=== PATIENT | female | born 1985 | race Caucasian/White ===

== ENCOUNTER 2016-11-23 19:52 | Inpatient (IN) ==
[2016-11-24] MEDS ORDERED: ONDANSETRON 4 MG/2 ML VIAL IV PRN ×2 (00:18→09:06)
[2016-11-24] MEDS: LACTATED RINGERS 1,000 ML IV SCH ×2 (00:25→01:59)
[2016-11-24 00:36] LABS: Basophils % 0.3 % (0.0-0.8); Eosinophils # 0.1 10*3/uL (0.0-0.87); Eosinophils % 0.7 % (0.00-10.9); Hematocrit 33.5 VOL% (35.7-47.0); Hemoglobin 11.2 GM/DL (12.0-16.0); Immature Granulocytes % 0.6 %; Immature Granulocytes Absolute 0.09 #; Lymphocytes # 2.9 10*3/uL (1.4-4.0); Lymphocytes % 19.3 % (21.3-54.2); Mean Corpuscular HGB Conc 33.4 GM/DL (32-36); Mean Corpuscular Hemoglobin 26 PG (27-34); Mean Corpuscular Volume 76.1 FL (87-102); Mean Platelet Volume 9.9 FL (9.6-12.0); Monocytes # 0.8 10*3/uL (0.11-0.8); Monocytes % 5.5 % (1.7-12.7); Neutrophils # 11.2 10*3/uL (1.4-7.4); Neutrophils % 73.6 % (38.7-73.9); Platelet Count 340 T/CUMM (130-400); Red Cell Distribution Width 16.2 % (9.3-17.3); White Blood Count 15.2 T/CUMM (4-12)
[2016-11-24] MEDS ORDERED: MEPERIDINE 50 MG/1 ML VIAL IV PRN (00:39)
[2016-11-24 01:03] LABS: Alanine Aminotransferase 19 U/L (13-56); Albumin 2.6 G/DL (3.4-5.0); Alkaline Phosphatase 251 U/L (45-117); Aspartate Amino Transferase 14 U/L (0-37); Bilirubin,Total < 0.39 MG/DL (0.2-1.0); Blood Urea Nitrogen 10 MG/DL (7-18); Calcium 8.9 MG/DL (8.5-10.1); Glucose 80 MG/DL (74-106); Osmolality,Calculated 276.4 MOS/KG (273-304); Potassium 3.9 MMOL/L (3.5-5.1); Sodium 140 MMOL/L (136-145); Total Protein 6.3 G/DL (6.4-8.3)
[2016-11-24] MEDS ORDERED: FAMOTIDINE 20 MG/2 ML VIAL IV ONE (03:29)
[2016-11-24] MEDS ORDERED: PROMETHAZINE 25 MG/1 ML VIAL IM ONE (03:29)
[2016-11-24] MEDS ORDERED: hydrOXYzine HCL 25 MG/1 ML VIAL IM PRN (03:29)
[2016-11-24] MEDS ORDERED: CITRIC ACID/SODIUM CITRATE 30 ML UDCUP PO ONE (03:29)
[2016-11-24] MEDS ORDERED: diphenhydrAMINE 50 MG/1 ML VIAL IV PRN ×2 (03:29)
[2016-11-24] MEDS ORDERED: ePHEDrine 50 MG/ML AMP IV PRN (03:29)
[2016-11-24] MEDS ORDERED: fentaNYL 2 MCG/ROPIV 0.2% EPID 150 ML EPIDURAL SCH (03:29)
[2016-11-24] MEDS ORDERED: LACTATED RINGERS 1,000 ML IV SCH (03:30)
--- NOTE | 2016-11-24 06:03 | OB/GYN History & Physical ---
History of Present Illness Chief complaint: at 39 weeks admitted for elective induction History of present illness: Ms. Shannon is a 31 year old female 2 para 1 at 39 weeks estimated gestational age with estimated weight of 7 lbs. 12 oz. with cervix 1-2 cm dilated 40% effaced -3 station vertex confirmed by ultrasound and normal JANELLE who requests elective induction. The risks benefits alternatives explained patient detail informed us is obtained for the above. Her group B strep status is negative. Home Medications Medication Instructions Recorded Confirmed Type Vit No.124/Iron/Folic 1 tablet PO DAILY 11/17/16 11/24/16 History [ Vitamin Tablet] Allergies Allergy/AdvReac Type Severity Reaction Status Date / Time Penicillins Allergy Severe RASH Verified 11/17/16 15:19 codeine AdvReac Mild Nausea Verified 11/17/16 15:19 12 point system: reviewed and no additional remarkable complaints except as stated Medical,Surgical,& Family Hx - Medical History HEENT: History of: Eye Problem (glasses/contacts) Reproductive: No history of: Ectopic , Complication - Family History Family History: Reports;: Family Cancer (pgf), Family Diabetes (mgf), Family Heart Disease (mgm), Family Hypertension (mother, father) - Social History Smoking Status: Never smoker Frequency of Alcohol Use: None Type of Drug Use: None 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 - Constitutional Vitals: Vital Signs Temp 11/24/16 04:00 97.8 F General appearance: normal weight, no acute distress - Head Head exam: Present: normal inspection, normocephalic, atraumatic - Neck Neck exam: Present: normal inspection - Respiratory Respiratory exam: Present: clear to auscultation bilaterally - Breast Breasts: as per HPI Menstruation: as per HPI - Cardiovascular Cardiovascular exam: Present: regular rate and rhythm - GI/Abdominal GI/Abdominal exam: Present: normal bowel sounds - Extremities Exam Extremities exam: Present: normal inspection, normal capillary refill - Back Exam Back exam: Present: normal inspection - Neurological Exam Neurological exam: Present: alert, oriented X3 - Psychiatric Psychiatric exam: Present: normal affect, normal mood - Skin Skin exam: Present: normal color, warm Assessment and Plan (1) with 39 completed weeks gestation Status: Acute Current Visit: Yes (2) Elective induction of labor planned Status: Acute Current Visit: Yes Results - Labs CBC & BMP: 11/24/16 00:27 11/24/16 00:27
[2016-11-24] MEDS ORDERED: OXYTOCIN/LR 20 UNIT/1,000 ML BAG IV SCH (08:30)
[2016-11-24] MEDS ORDERED: HYDROCORTISONE 2.5% RECTAL CREAM 30 GM TUBE TOP PRN (09:06)
[2016-11-24] MEDS ORDERED: DIPH/TET/ACEL PERT BOOSTER VACCINE 0.5 ML VIAL IM ONE (09:06)
[2016-11-24] MEDS ORDERED: BENZOCAINE 20%/MENTHOL 0.5% SPRAY 56 GM CAN TOP PRN (09:06)
[2016-11-24] MEDS ORDERED: WITCH HAZEL PADS 100/JAR TOP PRN (09:06)
[2016-11-24] MEDS ORDERED: LANOLIN 50% CREAM 0.3 OZ TUBE TOP PRN (09:06)
[2016-11-24] MEDS ORDERED: oxyCODONE/ACETAMINOPHEN 5-325 MG TABLET PO PRN (09:06)
[2016-11-24] MEDS ORDERED: BISACODYL 10 MG SUPP RECTAL PRN (09:06)
[2016-11-24] MEDS ORDERED: OXYTOCIN/LR 20 UNIT/1,000 ML BAG IV ONE (09:06)
[2016-11-24] MEDS ORDERED: RHO(D) IMMUNE GLOBULIN 300 MCG SYRINGE IM ONE (09:06)
[2016-11-24] MEDS ORDERED: MEASLES/MUMPS/RUBELLA VACCINE 0.5 ML VIAL SUBCUT ONE (09:06)
[2016-11-24] MEDS ORDERED: ACETAMINOPHEN 325 MG TABLET PO PRN (09:06)
--- NOTE | 2016-11-24 09:06 | OB/GYN Progress Note ---
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 Hernandez dictating vaginal delivery And in LDR environment under sterile conditions, the patient progressed to completely dilated. She was allowed to push and under [epidural] anesthesia had a normal spontaneous vaginal delivery of a live born female infant unweighed Apgars 8 9 over a second-degree midline tear. The infant's nose and oropharynx were bulb and DeLee suctioned, and the had spontaneous cry after delivery. The cord was doubly clamped and cut and the was handed over to the pediatric team for care. Cord blood was obtained the placenta delivered spontaneously intact and IV Pitocin was done. There were no cervical tears. There were no periurethral tears. Estimated blood loss was 250 mL. There were no complications. The bladder was emptied using a catheter prior to delivery. All sponge needle and instrument counts were correct -3 at the end of the delivery. The was taken to nursery in stable condition Exam ATTENDANT COIN OPERATED LAUNDRY - Constitutional Vitals: Vital Signs Temp 11/24/16 04:00 97.8 F Results - Labs CBC & BMP: 11/24/16 00:27 11/24/16 00:27
[2016-11-24] MEDS: oxyCODONE/ACETAMINOPHEN 5-325 MG TABLET PO PRN ×2 (11:33→16:46)
--- NOTE | 2016-11-24 13:34 | Anesthesia Post-Op ---
Anesthesia Post OP - Post Ansesthetic Evaluation Patient seen in post op: Yes Resp: within normal limits CV: within normal limits Mental: within normal limits Temp: within normal limits [id number]: within normal limits Nausea and Vomiting: within normal limits Pain: within normal limits
[2016-11-24] MEDS: IBUPROFEN 800 MG TABLET PO PRN (15:13)
[2016-11-24] MEDS ORDERED: SIMETHICONE CHEW 80 MG TABLET PO PRN (20:23)
[2016-11-24] MEDS ORDERED: MAGNESIUM HYDROXIDE SUSP 30 ML UDCUP PO PRN (20:23)
[2016-11-24] MEDS: DOCUSATE SODIUM 100 MG CAPSULE PO SCH (21:30)
[2016-11-24] MEDS: diphenhydrAMINE CAP 25 MG CAPSULE PO PRN (21:30)
[2016-11-25] MEDS: IBUPROFEN 800 MG TABLET PO PRN ×3 (04:36→18:12)
[2016-11-25] MEDS: oxyCODONE/ACETAMINOPHEN 5-325 MG TABLET PO PRN ×3 (04:37→18:12)
[2016-11-25 06:26] LABS: Basophils # 0.1 10*3/uL (0.0-0.2); Basophils % 0.5 % (0.0-0.8); Eosinophils # 0.2 10*3/uL (0.0-0.87); Eosinophils % 1.5 % (0.00-10.9); Hematocrit 30.9 VOL% (35.7-47.0); Hemoglobin 10.3 GM/DL (12.0-16.0); Immature Granulocytes % 0.4 %; Immature Granulocytes Absolute 0.05 #; Lymphocytes # 2.5 10*3/uL (1.4-4.0); Mean Corpuscular HGB Conc 33.3 GM/DL (32-36); Mean Corpuscular Hemoglobin 26 PG (27-34); Mean Corpuscular Volume 76.7 FL (87-102); Mean Platelet Volume 10.5 FL (9.6-12.0); Monocytes # 0.6 10*3/uL (0.11-0.8); Neutrophils # 9.2 10*3/uL (1.4-7.4); Neutrophils % 72.6 % (38.7-73.9); Platelet Count 256 T/CUMM (130-400); Red Blood Count 4.03 MC/CUMM (3.8-5.5); Red Cell Distribution Width 16.3 % (9.3-17.3); White Blood Count 12.6 T/CUMM (4-12)
--- NOTE | 2016-11-25 06:26 | OB/GYN Progress Note ---
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
[2016-11-25 06:49] LABS: Hypochromasia Slight
[2016-11-25] MEDS: DOCUSATE SODIUM 100 MG CAPSULE PO SCH ×2 (08:19→22:24)
[2016-11-25] MEDS: MULTIVITAMIN (PRENATAL) TABLET PO SCH (08:19)
[2016-11-25] MEDS ORDERED: [UNRECOGNIZED DRUG - REMARK] PO SCH (09:00)
[2016-11-25] MEDS: diphenhydrAMINE CAP 25 MG CAPSULE PO PRN (17:14)
[2016-11-26] MEDS: oxyCODONE/ACETAMINOPHEN 5-325 MG TABLET PO PRN ×2 (00:05→06:26)
[2016-11-26] MEDS: diphenhydrAMINE CAP 25 MG CAPSULE PO PRN (00:06)
[2016-11-26 07:16] VITALS: BP 150/91
--- NOTE | 2016-11-26 08:28 | Discharge Summary ---
Hospital Course - Hospital Course Hospital Course: patient did well. She had quick return of bowel bladder function. She remained afebrile and normotensive throughout her hospitalization she is constantly discharged on day #2 Diagnosis - Discharge Diagnosis (1) with 39 completed weeks gestation Status: Acute (2) Elective induction of labor planned Status: Acute Discharge Plan - Discharge Data Disposition: Disch To Home/Self Care Condition at Discharge: Stable Discharge Diet: regular diet Activity: increase activity as tolerated, other (Pelvic rest) Hygiene: may shower Weight Bearing at Discharge: full weight bearing Driving: not until seen by doctor Contact your physician if you experience:: fever over 101, Difficulty voiding, Redness or swelling, Nausea/Vomiting, Shortness of breath, Bleeding, pain uncontrolled by pain medications - Discharge Medications New Acetamin/Codeine 300-30 Tab [Tylenol/Codeine #3] 1 tablet PO Q4H PRN #15 tablet PRN Reason: Abdominal Pain Discontinued Vit No.124/Iron/Folic [ Vitamin Tablet] 1 tablet PO DAILY - Follow Up or Referral Follow Up: Alex Hernandez MD [Physician] - 2 Weeks - Forms/Instructions Exam - Constitutional Vitals: Period Temp Pulse Resp BP Sys/Velazco Pulse Ox Last 24 Hr 96.0 F-98.2 F 74-98 18-20 122-150/62-91 97-99 DS: Provider Date of admission: 11/24/16 00:18 Primary care physician: . No PCP Attending physician on admission: Seth Waggoner Consults: 11/24/16 00:18 Consult to Anesthesiology [CONS] Routine Consulting Provider: Reason for Anesthesiology: Epidural Consult Comment: Epidural for pain managment 11/24/16 09:06 Consult to Make Up Operator Helper [CONS] Routine Consult Make Up Operator Helper: Breast Feeding Discharging clinician: Seth Waggoner Expected date of discharge: 11/26/16
[2016-11-26] MEDS: DOCUSATE SODIUM 100 MG CAPSULE PO SCH (08:37)
[2016-11-26] MEDS: MULTIVITAMIN (PRENATAL) TABLET PO SCH (08:37)
--- NOTE | 2016-12-07 08:31 | Physician Query Form ---
CLICK EDIT DOCUMENT TO SELECT QUERY ANSWER --> OK --> SIGN Karla Pope RN Clinical Clinical Trainer W) [phone] (f) [phone] [email or web address] PROVIDERS: Make your selection(s) from the choices in EACH section by typing an "x" and enter comments in the comment section. Please use your independent medical judgment in providing your response. This request does not imply that any particular answer is desired or expected. CLINICAL INDICATORS: (Providers should not edit this section) Based on documentation of "Over a second degree midline tear" "There were no cervical tears. There were no periurethral tears." Based on the above, could you clarify the appropriate diagnosis, if significant , that supports the above abnormalities and additional evaluation, monitoring, and/or treatment rendered: ( ) Midline Tear WAS Repaired ( ) Midline Tear WAS NOT Repaired ( ) Other, please specify: ( ) Clinically unable to determine COMMENTS: PLEASE ALSO DOCUMENT RESPONSE IN PROGRESS NOTES AND/OR DISCHARGE SUMMARY Use of terms such as suspected, likely, or probable (associated with a specific diagnosis that is being evaluated, monitored, or treated as if it exists) are acceptable and can be restated in the discharge summary if not ruled out. [facility]
== END 2016-11-26 12:20 | disposition home or self-care (01) | DRG 775 ==
LOC: N.LDOUT 19:52 → N.LD 19:55 → N.OB 11-24 12:51
PROVIDERS: ADMIT Specialist; ATTEND Specialist